=== PATIENT | male | born 1960 | race Caucasian/White ===

== ENCOUNTER → 2018-01-03 | Outpatient (CLI) | payer BC ==
[~2018-01-03] MED LIST: CEPHALEXIN500 M1 PO; NO HOME MEDICATIONS
== END ==
LOC: COL.RAD 14:47
DX: K76.0 Fatty (change of) liver, not elsewhere classified (principal)

== ENCOUNTER 2018-07-27 21:02 | Emergency (ER) | payer BC ==
[~2018-07-27] VITALS: Ht 180.3 cm; Wt 68.2 kg
[2018-07-27 21:05] VITALS: BP 174/98; TEMP 98.2
[2018-07-27] MEDS ORDERED: LIPITOR 10MG10 MG PO (21:18)
[2018-07-27] MEDS ORDERED: THE MEDICINE S200 M2 PO (21:19)
[2018-07-27] MEDS ORDERED: CLEOCIN HC150 MG/CAP PO (21:32)
[2018-07-27 21:45] VITALS: PULSE 83
== END 2018-07-27 21:50 | disposition home or self-care (01) ==
LOC: COL.ER 21:02
DX: K02.9 Dental caries, unspecified (principal); F17.210 Nicotine dependence, cigarettes, uncomplicated

== ENCOUNTER 2019-02-28 19:50 | Emergency (ER) | payer BC ==
[~2019-02-28] VITALS: Ht 180.3 cm; Wt 68.2 kg
[~2019-02-28 19:50] MED LIST changes: +CLEOCIN HC150 MG/CAP PO; +LIPITOR 10MG10 MG PO; +THE MEDICINE S200 M2 PO
[2019-02-28 19:57] VITALS: BP 138/88; TEMP 98.3
[2019-02-28 23:20] VITALS: PULSE 92
== END 2019-02-28 23:25 | disposition home or self-care (01) ==
LOC: COL.ER 19:50
DX: S01.501A Unspecified open wound of lip, initial encounter (principal); E78.5 Hyperlipidemia, unspecified; F17.210 Nicotine dependence, cigarettes, uncomplicated; Z88.0 Allergy status to penicillin; Z88.2 Allergy status to sulfonamides

== ENCOUNTER 2022-10-29 17:42 | Emergency (ER) | payer OTHER, BC ==
[~2022-10-29] VITALS: Ht 180.3 cm; Wt 65.9 kg
[2022-10-29 19:11] LABS: BASO % 0.3 % (0.0-2.0); GRAN % 85.6 % (42.2-75.2); HEMOGLOBIN 12.4 g/dl (13.5-18.0); LYMPH # 0.4 K/mm3 (1.2-3.4); LYMPH % 6.2 % (20.0-51.0); MEAN CELL VOLUME 96 fl (80.0-100.0); MEAN CORPUSCULAR HEMOGLOBIN 33 pg (27-31); MEAN CORPUSCULAR HGB CONC 34 g/dl (33.0-37.0); MEAN PLATELET VOLUME 9.7 fl (7.4-10.4); MONO # 0.5 K/mm3 (0.1-0.6); MONO % 7.7 % (1.7-9.3); PLATELET COUNT 114 K/mm3 (130-400); RED BLOOD COUNT 3.82 M/mm3 (4.20-5.60); REDCELL DISTRIBUTION WIDTH-CV 12.3 % (11.5-14.5)
[2022-10-29 19:14] LABS: HEMATOCRIT 36.5 % (42.0-52.0)
[2022-10-29 19:23] LABS: ALBUMIN 4.1 gm/dL (3.4-4.8); BILIRUBIN,TOTAL 1.2 mg/dL (0.2-1.2); CALCIUM 9.8 mg/dL (8.4-10.2); CREATININE, serum 0.95 mg/dL (0.72-1.25); POTASSIUM 3.8 mmol/L (3.5-4.5); TOTAL PROTEIN 7.1 gm/dL (6.2-8.1)
[2022-10-29 19:42] VITALS: BP 167/93; PULSE 98; TEMP 98.1
== END 2022-10-29 19:42 | disposition home or self-care (01) ==
LOC: COL.ER 17:42
PROVIDERS: Family Medicine
DX: S06.0XAA Concussion with loss of consciousness status unknown, initial encounter (principal); S00.83XA Contusion of other part of head, initial encounter; V49.9XXA Car occupant (driver) (passenger) injured in unspecified traffic accident, initial encounter; Y92.410 Unspecified street and highway as the place of occurrence of the external cause